=== PATIENT | male | born 1965 | race Caucasian/White ===

== ENCOUNTER 2017-10-21 16:35 | Emergency (ER) | payer SELFPAY | END 2017-10-21 16:40 | disposition left against medical advice (07) | LOC: ED 16:35 | DX: R42 Dizziness and giddiness (principal); Z53.21 Procedure and treatment not carried out due to patient leaving prior to being seen by health care provider ==

== ENCOUNTER 2018-05-08 21:59 | Emergency (ER) | payer SELFPAY ==
--- NOTE | 2018-05-08 22:15 | Emergency Department Report ---
Blank Doc - Documentation Documentation: This is a 53-year-old male that presents with hypermanic symptoms. Patient is a poor historian. PMH includes bipolar. This initial assessment diagnostic orders/clinical plan/treatment(s) is/are subject to change based on patient's health status, clinical progression and re-assessment by fellow clinical providers in the ED. Further treatment and workup at subsequent clinical providers discretion. Patient/guardians urged not to elope from ED s their condition may be serious if not clinically assessed and managed. Initial orders include: 1-labs 2- psych protocol
--- NOTE | 2018-05-08 22:46 | Emergency Department Report ---
ED Psych HPI - General Chief Complaint: Psych Stated Complaint: MH Time Seen by Provider: 05/08/18 22:12 Source: patient Mode of arrival: Ambulatory Limitations: Altered Mental Status, Other (Psychotic behavior) - History of Present Illness Initial Comments: Patient is here for medical clearance. Patient has no medical complaint currently. -: Sudden Associated Psychiatric Symptoms: racing thoughts, auditory hallucinations, other (Psychosis) History of same: Yes Quality: constant Improves With: none Worsens With: none Associated Symptoms: denies other symptoms Treatments Prior to Arrival: none - Related Data Home Medications Medication Instructions Recorded Confirmed Last Taken Haloperidol [Haldol] 5 mg PO QHS 07/07/13 12/21/14 Unknown diphenhydrAMINE [Benadryl] 50 mg PO QHS 07/07/13 12/21/14 Unknown Allergies Allergy/AdvReac Type Severity Reaction Status Date / Time No Known Allergies Allergy Verified 12/20/14 11:35 ED Review of Systems ROS: Stated complaint: MH Other details as noted in HPI Comment: All other systems reviewed and negative Constitutional: denies: chills, fever Eyes: denies: eye pain, eye discharge, vision change ENT: denies: ear pain, throat pain Respiratory: denies: cough, shortness of breath, wheezing Cardiovascular: denies: chest pain, palpitations Endocrine: no symptoms reported Gastrointestinal: denies: abdominal pain, nausea, diarrhea Genitourinary: denies: urgency, dysuria Musculoskeletal: denies: back pain, joint swelling, arthralgia Skin: denies: rash, lesions Neurological: denies: headache, weakness, paresthesias Psychiatric: denies: anxiety, depression, auditory hallucinations, visual hallucinations, homicidal thoughts, suicidal thoughts Hematological/Lymphatic: denies: easy bleeding, easy bruising ED Past Medical Hx - Past Medical History Hx Hypertension: Yes Hx Psychiatric Treatment: Yes ([facility] & OP) Additional medical history: Pt states he is bipolar - Surgical History Additional Surgical History: Small bowel instruction, volvulus, appendectomy - Social History Smoking Status: Current Every Day Smoker Substance Use Type: None - Medications Home Medications: Home Medications Medication Instructions Recorded Confirmed Last Taken Type Haloperidol [Haldol] 5 mg PO QHS 07/07/13 12/21/14 Unknown History diphenhydrAMINE [Benadryl] 50 mg PO QHS 07/07/13 12/21/14 Unknown History ED Physical Exam - General Limitations: Other General appearance: alert, in no apparent distress - Head Head exam: Present: atraumatic, normocephalic - Eye Eye exam: Present: normal appearance, PERRL, EOMI Pupils: Present: normal accommodation - ENT ENT exam: Present: normal exam, mucous membranes moist - Neck Neck exam: Present: normal inspection - Respiratory Respiratory exam: Present: normal lung sounds bilaterally. Absent: respiratory distress - Cardiovascular Cardiovascular Exam: Present: regular rate, normal rhythm. Absent: systolic murmur, diastolic murmur, rubs, gallop - GI/Abdominal GI/Abdominal exam: Present: soft, normal bowel sounds - Rectal Rectal exam: Present: deferred - Extremities Exam Extremities exam: Present: normal inspection - Back Exam Back exam: Present: normal inspection, full ROM - Neurological Exam Neurological exam: Present: alert, oriented X3 - Psychiatric Psychiatric exam: Present: normal affect, normal mood, manic. Absent: homicidal ideation, suicidal ideation - Skin Skin exam: Present: warm, dry, intact, normal color. Absent: rash ED Course Vital Signs 05/08/18 05/08/18 22:12 22:55 Temperature 99.2 F 98.8 F Pulse Rate 99 H 94 H Respiratory 18 18 Rate Blood Pressure 131/83 Blood Pressure 127/52 [Right] O2 Sat by Pulse 100 97 Oximetry ED Medical Decision Making - Lab Data Result diagrams: 05/08/18 22:40 05/08/18 22:40 Lab Results 05/08/18 05/08/18 05/08/18 Range/Units 22:40 22:40 22:40 WBC 9.5 (4.5-11.0) K/mm3 RBC 4.33 (3.65-5.03) M/mm3 Hgb 13.2 (11.8-15.2) gm/dl Hct 39.6 (35.5-45.6) % MCV 92 (84-94) fl MCH 31 (28-32) pg MCHC 33 (32-34) % RDW 14.2 (13.2-15.2) % Plt Count 369 (140-440) K/mm3 Lymph % (Auto) 17.3 (13.4-35.0) % Stoddard % (Auto) 11.1 H (0.0-7.3) % Eos % (Auto) 1.3 (0.0-4.3) % Baso % (Auto) 0.6 (0.0-1.8) % Lymph # 1.7 (1.2-5.4) K/mm3 Stoddard # 1.1 H (0.0-0.8) K/mm3 Eos # 0.1 (0.0-0.4) K/mm3 Baso # 0.1 (0.0-0.1) K/mm3 Seg Neutrophils % 69.7 (40.0-70.0) % Seg Neutrophils # 6.7 (1.8-7.7) K/mm3 Sodium 139 (137-145) mmol/L Potassium 4.3 (3.6-5.0) mmol/L Chloride 101.3 (98-107) mmol/L Carbon Dioxide 26 (22-30) mmol/L Anion Gap 16 mmol/L BUN 11 (9-20) mg/dL Creatinine 0.7 L (0.8-1.5) mg/dL Estimated GFR > 60 ml/min BUN/Creatinine Ratio 16 % Glucose 97 (75-100) mg/dL Calcium 8.8 (8.4-10.2) mg/dL Total Bilirubin 0.70 (0.1-1.2) mg/dL AST 27 (5-40) units/L ALT 22 (7-56) units/L Alkaline Phosphatase 89 (35-129) units/L Total Protein 7.8 (6.3-8.2) g/dL Albumin 4.3 (3.9-5) g/dL Albumin/Globulin Ratio 1.2 % TSH (0.270-4.200) mlU/mL Urine Color (Yellow) Urine Turbidity (Clear) Urine pH (5.0-7.0) Ur Specific Caputa (1.003-1.030) Urine Protein (Negative) mg/dL Urine Glucose (UA) (Negative) mg/dL Urine Ketones (Negative) mg/dL Urine Blood (Negative) Urine Nitrite (Negative) Urine Bilirubin (Negative) Urine Urobilinogen (<2.0) mg/dL Ur Leukocyte Esterase (Negative) Urine WBC (Auto) (0.0-6.0) /HPF Urine RBC (Auto) (0.0-6.0) /HPF Urine Mucus /HPF Salicylates (2.8-20.0) mg/dL Urine Opiates Screen Urine Methadone Screen Acetaminophen (10.0-30.0) ug/mL Ur Barbiturates Screen Ur Phencyclidine Scrn Ur Amphetamines Screen U Benzodiazepines Scrn Urine Cocaine Screen U Marijuana (THC) Screen Drugs of Abuse Note Plasma/Serum Alcohol < 0.01 (0-0.07) % 05/08/18 05/08/18 05/08/18 Range/Units 22:40 22:57 22:57 WBC (4.5-11.0) K/mm3 RBC (3.65-5.03) M/mm3 Hgb (11.8-15.2) gm/dl Hct (35.5-45.6) % MCV (84-94) fl MCH (28-32) pg MCHC (32-34) % RDW (13.2-15.2) % Plt Count (140-440) K/mm3 Lymph % (Auto) (13.4-35.0) % Stoddard % (Auto) (0.0-7.3) % Eos % (Auto) (0.0-4.3) % Baso % (Auto) (0.0-1.8) % Lymph # (1.2-5.4) K/mm3 Stoddard # (0.0-0.8) K/mm3 Eos # (0.0-0.4) K/mm3 Baso # (0.0-0.1) K/mm3 Seg Neutrophils % (40.0-70.0) % Seg Neutrophils # (1.8-7.7) K/mm3 Sodium (137-145) mmol/L Potassium (3.6-5.0) mmol/L Chloride (98-107) mmol/L Carbon Dioxide (22-30) mmol/L Anion Gap mmol/L BUN (9-20) mg/dL Creatinine (0.8-1.5) mg/dL Estimated GFR ml/min BUN/Creatinine Ratio % Glucose (75-100) mg/dL Calcium (8.4-10.2) mg/dL Total Bilirubin (0.1-1.2) mg/dL AST (5-40) units/L ALT (7-56) units/L Alkaline Phosphatase (35-129) units/L Total Protein (6.3-8.2) g/dL Albumin (3.9-5) g/dL Albumin/Globulin Ratio % TSH 1.430 (0.270-4.200) mlU/mL Urine Color Yellow (Yellow) Urine Turbidity Clear (Clear) Urine pH 6.0 (5.0-7.0) Ur Specific Caputa 1.010 (1.003-1.030) Urine Protein <15 mg/dl (Negative) mg/dL Urine Glucose (UA) Neg (Negative) mg/dL Urine Ketones Neg (Negative) mg/dL Urine Blood Neg (Negative) Urine Nitrite Neg (Negative) Urine Bilirubin Neg (Negative) Urine Urobilinogen 4.0 (<2.0) mg/dL Ur Leukocyte Esterase Neg (Negative) Urine WBC (Auto) 0.0 (0.0-6.0) /HPF Urine RBC (Auto) 2.0 (0.0-6.0) /HPF Urine Mucus Few /HPF Salicylates (2.8-20.0) mg/dL Urine Opiates Screen Presumptive negative Urine Methadone Screen Presumptive negative Acetaminophen (10.0-30.0) ug/mL Ur Barbiturates Screen Presumptive negative Ur Phencyclidine Scrn Presumptive negative Ur Amphetamines Screen Presumptive negative U Benzodiazepines Scrn Presumptive negative Urine Cocaine Screen Presumptive negative U Marijuana (THC) Screen Presumptive negative Drugs of Abuse Note Disclamer Plasma/Serum Alcohol (0-0.07) % 05/08/18 05/08/18 Range/Units 23:16 23:16 WBC (4.5-11.0) K/mm3 RBC (3.65-5.03) M/mm3 Hgb (11.8-15.2) gm/dl Hct (35.5-45.6) % MCV (84-94) fl MCH (28-32) pg MCHC (32-34) % RDW (13.2-15.2) % Plt Count (140-440) K/mm3 Lymph % (Auto) (13.4-35.0) % Stoddard % (Auto) (0.0-7.3) % Eos % (Auto) (0.0-4.3) % Baso % (Auto) (0.0-1.8) % Lymph # (1.2-5.4) K/mm3 Stoddard # (0.0-0.8) K/mm3 Eos # (0.0-0.4) K/mm3 Baso # (0.0-0.1) K/mm3 Seg Neutrophils % (40.0-70.0) % Seg Neutrophils # (1.8-7.7) K/mm3 Sodium (137-145) mmol/L Potassium (3.6-5.0) mmol/L Chloride (98-107) mmol/L Carbon Dioxide (22-30) mmol/L Anion Gap mmol/L BUN (9-20) mg/dL Creatinine (0.8-1.5) mg/dL Estimated GFR ml/min BUN/Creatinine Ratio % Glucose (75-100) mg/dL Calcium (8.4-10.2) mg/dL Total Bilirubin (0.1-1.2) mg/dL AST (5-40) units/L ALT (7-56) units/L Alkaline Phosphatase (35-129) units/L Total Protein (6.3-8.2) g/dL Albumin (3.9-5) g/dL Albumin/Globulin Ratio % TSH (0.270-4.200) mlU/mL Urine Color (Yellow) Urine Turbidity (Clear) Urine pH (5.0-7.0) Ur Specific Caputa (1.003-1.030) Urine Protein (Negative) mg/dL Urine Glucose (UA) (Negative) mg/dL Urine Ketones (Negative) mg/dL Urine Blood (Negative) Urine Nitrite (Negative) Urine Bilirubin (Negative) Urine Urobilinogen (<2.0) mg/dL Ur Leukocyte Esterase (Negative) Urine WBC (Auto) (0.0-6.0) /HPF Urine RBC (Auto) (0.0-6.0) /HPF Urine Mucus /HPF Salicylates < 0.3 L (2.8-20.0) mg/dL Urine Opiates Screen Urine Methadone Screen Acetaminophen < 5.0 L (10.0-30.0) ug/mL Ur Barbiturates Screen Ur Phencyclidine Scrn Ur Amphetamines Screen U Benzodiazepines Scrn Urine Cocaine Screen U Marijuana (THC) Screen Drugs of Abuse Note Plasma/Serum Alcohol (0-0.07) % - Radiology Data Radiology results: report reviewed, image reviewed CT head is negative. - Medical Decision Making Psychotic Behavior. Auditory Hallucinations. Unable to care for himself. Critical care attestation.: If time is entered above; I have spent that time in minutes in the direct care of this critically ill patient, excluding procedure time. 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
[2018-05-08 23:14] LABS: Basophils # (Auto) 0.1 K/mm3 (0.0-0.1); Basophils % (Auto) 0.6 % (0.0-1.8); Eosinophils # (Auto) 0.1 K/mm3 (0.0-0.4); Eosinophils % (Auto) 1.3 % (0.0-4.3); Hematocrit 39.6 % (35.5-45.6); Hemoglobin 13.2 gm/dl (11.8-15.2); Lymphocytes # (Auto) 1.7 K/mm3 (1.2-5.4); Lymphocytes % (Auto) 17.3 % (13.4-35.0); Mean Corpuscular HGB Conc 33 % (32-34); Mean Corpuscular Volume 92 fl (84-94); Monocytes # (Auto) 1.1 K/mm3 (0.0-0.8); Monocytes % (Auto) 11.1 % (0.0-7.3); Platelet Count 369 K/mm3 (140-440); Red Blood Count 4.33 M/mm3 (3.65-5.03); Red Cell Distribution Width 14.2 % (13.2-15.2)
[2018-05-08 23:15] LABS: Bilirubin,Urine NEG (Negative); Blood,Urine NEG (Negative); Color,Urine Yellow (Yellow); Mucus,Urine FEW /HPF; Protein,Urine <15 mg/dL mg/dL (Negative)
[2018-05-08 23:24] LABS: Amphetamine Screen,Urine PRESUMPTIVE NEGATIVE; Benzodiazepines Screen,Urine PRESUMPTIVE NEGATIVE; Cannabinoid Screen,Urine PRESUMPTIVE NEGATIVE; Cocaine Screen,Urine PRESUMPTIVE NEGATIVE; Methadone Screen,Urine PRESUMPTIVE NEGATIVE; Opiate Screen,Urine PRESUMPTIVE NEGATIVE
[2018-05-08 23:44] LABS: Alanine Aminotransferase 22 units/L (7-56); Albumin 4.3 g/dL (3.9-5); BUN/Creatinine Ratio 16; Blood Urea Nitrogen 11 mg/dL (9-20); Calcium 8.8 mg/dL (8.4-10.2); Hemolysis Index 3
--- NOTE | 2018-05-09 01:16 | Cat Scan Report ---
FINAL REPORT PROCEDURE: CT HEAD/BRAIN WO CON TECHNIQUE: Computerized tomography of the head was performed without contrast material. HISTORY: altered mental status COMPARISON: No prior studies are available for comparison. FINDINGS: Skull and scalp: Normal. Paranasal sinuses: Normal. Ventricles and subarachnoid spaces: Normal. Cerebrum: No evidence of hemorrhage, acute infarction or mass . Cerebellum and brainstem: No evidence of hemorrhage, acute infarction or mass. Vasculature: Normal. Comments: None. IMPRESSION: Normal Examination
--- NOTE | 2018-05-09 12:58 | Consultation ---
History of Present Illness - Reason for Consult Consult date: 05/09/18 Reason for consult: Initial Psychiatric Evaluation - Chief Complaint Chief complaint: " I have a hurt fucking hip" - History of Present Psychiatric Illness Patient is a 53 year old white male who presents to the emergency room with psychosis and manic symptoms. He has a PPHx of schizoafective disorder, bipolar type. Patient is a poor historian. Today the patient is irritated and anxious during the assessment. He exhibits paranoid delusions. He accuses staff members of spitting on him. Due to patient's disorganized thought process, provider is unable to fully assess. Mood is noted to be labile. Patient's answer to questions are inappropriately. He refuses to answer questions directly. Patient has to be redirected on several occasions to stay on topic. Current Psychiatric Medications: Unable to Assess. Past Psychiatric History: Unable to Assess. Past Psychiatric Medication Trials: Unable to Assess. History of Drug/Alcohol Abuse: Unable to Assess. UDS negative. History of Abuse/Trauma: Unable to Assess. Social History: Unable to Assess. Family History of psychiatric illness and substance abuse: Unable to Assess. Medications and Allergies Allergies Allergy/AdvReac Type Severity Reaction Status Date / Time No Known Allergies Allergy Verified 12/20/14 11:35 Home Medications Medication Instructions Recorded Confirmed Last Taken Type Haloperidol [Haldol] 5 mg PO QHS 07/07/13 12/21/14 Unknown History diphenhydrAMINE [Benadryl] 50 mg PO QHS 07/07/13 12/21/14 Unknown History Mental Status Exam - Vital signs Last Vital Signs Temp 99 F 05/09/18 08:33 Pulse 91 H 05/09/18 08:33 Resp 18 05/09/18 08:33 BP 111/75 05/09/18 08:33 Pulse Ox 97 05/09/18 08:33 - Exam Narrative exam: Mental Status Exam Appearance: in a hospital gown Behavior: regular eye contact Speech: rambling/incoherent at times Mood: irritable, labile Affect: congruent to mood Thought Process: disorganized, circumstantial Thought Content: nods no-SI/HI's; + AH's and paranoid delusions. Motor Activity: ambulatory Cognition: A/O x3 Insight: poor Judgment: poor Results Result Diagrams: 05/08/18 22:40 05/08/18 22:40 Abnormal lab results 05/08/18 05/08/18 05/08/18 Range/Units 22:40 22:40 23:16 Moore % (Auto) 11.1 H (0.0-7.3) % Moore # 1.1 H (0.0-0.8) K/mm3 Creatinine 0.7 L (0.8-1.5) mg/dL Salicylates < 0.3 L (2.8-20.0) mg/dL Acetaminophen (10.0-30.0) ug/mL 05/08/18 Range/Units 23:16 Moore % (Auto) (0.0-7.3) % Moore # (0.0-0.8) K/mm3 Creatinine (0.8-1.5) mg/dL Salicylates (2.8-20.0) mg/dL Acetaminophen < 5.0 L (10.0-30.0) ug/mL All other labs normal. Assessment and Plan Assessment and plan: Impression: PPHx of schizoaffective disorder, bipolar type. Psychosis unspecified. Today the patient is anxious and irritated during the assessment. Provider unable to fully assess patient due to disorganized thought process and labile mood. UDS negative. Recommendation/Plan: 1. Continue 1013. 2. Attempt to gain collateral to determine proper disposition. 3. Will start Zyprexa 5mg po QHS mood/psychosis. Attempted to discuss metabolic side effects of Zyprexa with patient. Disposition: The patient was referred to inpatient psychiatric services. Will staff with Dr. Liana Lin.
--- NOTE | 2018-05-10 14:25 | Progress Note ---
Subjective - Reason for Consult Consult date: 05/10/18 Reason for consult: psychiatry Follow-up - Chief Complaint Chief complaint: "I am not well" 3 year old white male who presents to the emergency room with psychosis. Today the patient is calm, but tangent during the assessment. He had to be redirected several times to keep him on topic. Hus answers to questions were not logical. He has loose associations throughout the interview. No gestures of SI/Hi's. No indications of side effects of his medications. Mental Status Exam - Vital signs Last Vital Signs Temp 98.9 F 05/10/18 10:51 Pulse 88 05/10/18 10:51 Resp 20 05/10/18 10:51 BP 112/82 05/10/18 10:51 Pulse Ox 98 05/10/18 10:51 - Exam Narrative exam: MSE: Appearance: calm Behavior: regular eye contact Speech: regular rate with and tone Mood: labile Affect: congruent to mood Thought Process: tangent, loose associations Thought Content: denies HI's and AVH's, delusional Motor Activity: ambulatory Cognition: A/O x3 Insight: poor Judgment: poor Assessment and Plan Impression: Unspecified Psychosis. Today the patient is calm, but tangent during the assessment. DDx: Schizophrenia, Schzoaffective DO, Bipolar DO with psychosis Recommendation/Plan: Continue 1013 and Zyprexa 5 mg PO HS for psychosis. Attempted to discuss possible metabolic side effects of Zyprexa with patient. Dispo: The patient was referred to inpatient psychiatric services. Will staff with Dr. Edgar Lin.
--- NOTE | 2018-05-11 08:18 | Progress Note ---
Subjective - Reason for Consult Consult date: 05/11/18 Reason for consult: Psychiatry Follow-up - Chief Complaint Chief complaint: "Do you see them" 3 year old white male who presents to the emergency room with psychosis. Today the patient is calm, but tangent during the assessment. Per collateral information from his niece Nahomy Andrade at [phone], she stated that her uncle has a hx of Schizophrenia. She stated that he was last admitted to [facility] for mental health. The patient is very anxious and had to be redirected throughout the interview. Also, he was observed pacing in his room and talking to the perez. No gestures of SI/HI's. No indications of side effects of his medications. Mental Status Exam - Vital signs Last Vital Signs Temp 98.3 F 05/11/18 03:07 Pulse 88 05/11/18 03:07 Resp 18 05/11/18 03:07 BP 134/90 05/11/18 03:07 Pulse Ox 97 05/11/18 03:07 - Exam Narrative exam: MSE: Appearance: calm Behavior: regular eye contact Speech: regular rate with and tone Mood: anxious Affect: congruent to mood Thought Process: tangent, loose associations Thought Content: denies SI/HI's and AVH's, delusional Motor Activity: ambulatory Cognition: A/O x3 Insight: poor Judgment: poor Assessment and Plan Impression: Unspecified Psychosis. 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 Today the patient is calm, but tangent during the assessment. DDx: Schizophrenia, Schzoaffective DO, Bipolar DO with psychosis Recommendation/Plan: Continue 1013 and modify Zyprexa to 5 mg PO BID for psychosis and start Buspar 7.5 mg PO BID for anxiety. Attempted to discuss possible metabolic side effects of Zyprexa with patient. Dispo: The patient was referred to inpatient psychiatric services. Will staff with Dr. Liana Lin.
[2018-05-11] MEDS: BUSPAR PO SCH ×2 (10:59→22:29)
--- NOTE | 2018-05-12 08:19 | Progress Note ---
Subjective - Reason for Consult Consult date: 05/12/18 Reason for consult: Psychiatry Follow-up - Chief Complaint Chief complaint: "Hello" 3 year old white male who presents to the emergency room with psychosis. Today the patient is calm, but tangent during the assessment. The patient contiue to be disorganized throughout the interview. He has constant loose associations. Per the staff, the patient did not sleep last night. No gestures of SI/HI's. No indications of side effects of his medications. Mental Status Exam - Vital signs Last Vital Signs Temp 97.7 F 05/12/18 01:35 Pulse 79 05/12/18 01:35 Resp 16 05/12/18 01:35 BP 101/50 05/12/18 01:35 Pulse Ox 99 05/12/18 01:35 - Exam Narrative exam: MSE: Appearance: calm Behavior: regular eye contact Speech: regular rate with and tone Mood: anxious Affect: congruent to mood Thought Process: tangent, disorganized, loose associations Thought Content: denies SI/HI's and AVH's, delusional Motor Activity: ambulatory Cognition: A/O x3 Insight: poor Judgment: poor Assessment and Plan Impression: Unspecified Psychosis. 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 Today the patient is calm, but tangent during the assessment. DDx: Schizophrenia, Schzoaffective DO, Bipolar DO with psychosis Recommendation/Plan: Continue 1013 and modify Zyprexa to 5 mg PO BID for psychosis and Buspar 7.5 mg PO BID for anxiety. Start Traodone 50 mg PO HS for sleep. Attempted to discuss possible metabolic side effects of Zyprexa with patient. Also, attempted to discuss possible suidicality/medication induced angeline/priapism with the patient reference Trazodone. Dispo: The patient was referred to inpatient psychiatric services. Will staff with Dr. Rivera.
[2018-05-12] MEDS: BUSPAR PO SCH ×2 (15:34→22:17)
[2018-05-12] MEDS: DESYREL PO SCH (22:17)
[2018-05-13] MEDS: BUSPAR PO SCH ×2 (09:32→22:12)
--- NOTE | 2018-05-13 13:33 | Progress Note ---
Subjective - Reason for Consult Consult date: 05/13/18 Reason for consult: Psychiatry Follow-up - Chief Complaint Chief complaint: "I don't need you" 3 year old white male who presents to the emergency room with psychosis. Today the patient is irritable during the assessment. The psy assessment could not be completed because the patient was belligerent throughout the interview. The interview had to be terminated. No gestures of SI/HI's. Mental Status Exam - Vital signs Last Vital Signs Temp 98.6 F 05/13/18 07:59 Pulse 78 05/13/18 07:59 Resp 20 05/13/18 07:59 BP 123/75 05/13/18 07:59 Pulse Ox 97 05/13/18 07:59 - Exam Narrative exam: Unable to complete the MSE because of the patient's condition. Assessment and Plan Impression: Unspecified Psychosis. 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 Today the patient is irritable during the assessment. DDx: Schizophrenia, Schzoaffective DO, Bipolar DO with psychosis Recommendation/Plan: Continue 1013, Zyprexa 5 mg PO BID for psychosis, Buspar 7.5 mg PO BID for anxiety, and Traodone 50 mg PO HS for sleep. Attempted to discuss possible metabolic side effects of Zyprexa with patient. Also, attempted to discuss possible suidicality/medication induced nageline/priapism with the patient reference Trazodone. Dispo: The patient was accepted at [facility] for inpatient psy services pending transport time. Will staff with Dr. Rivera.
[2018-05-13] MEDS: DESYREL PO SCH (22:12)
[2018-05-14] MEDS: BUSPAR PO SCH (09:45)
[2018-05-14 13:56] VITALS: BP 110/64
== END 2018-05-14 15:58 ==
LOC: ED 21:59 → EEVIPCON 21:59 → ED 05-14 15:58
DX: F23 Brief psychotic disorder (principal); I10 Essential (primary) hypertension; F31.9 Bipolar disorder, unspecified; F17.200 Nicotine dependence, unspecified, uncomplicated; Z90.49 Acquired absence of other specified parts of digestive tract
CPT/HCPCS: 36415; 80053; 80307; 81001; 84443; 85025; 99285; G0480; 80320